=== PATIENT | female | born 1995 | race Caucasian/White ===

== ENCOUNTER 2018-02-24 20:40 | Emergency (ER) | payer SELFPAY | END 2018-02-24 21:10 | disposition home or self-care (01) | LOC: NAV ERS 20:40 | DX: K60.2 Anal fissure, unspecified (principal); F31.9 Bipolar disorder, unspecified | CPT/HCPCS: 99283 ==

== ENCOUNTER 2018-03-16 20:29 | Emergency (ER) | payer SELFPAY | END 2018-03-16 21:00 | disposition home or self-care (01) | LOC: NAV ERS 20:29 | DX: L25.9 Unspecified contact dermatitis, unspecified cause (principal); F31.9 Bipolar disorder, unspecified | CPT/HCPCS: 99282 ==

== ENCOUNTER 2018-03-24 02:06 | Emergency (ER) | payer SELFPAY ==
[2018-03-24] MEDS ORDERED: Ketorolac Tromethamine 30 MG/ML VIAL ONE (02:31)
== END 2018-03-24 03:00 | disposition home or self-care (01) ==
LOC: NAV ERS 02:06
DX: J20.9 Acute bronchitis, unspecified (principal); R10.9 Unspecified abdominal pain; M54.9 Dorsalgia, unspecified; F31.9 Bipolar disorder, unspecified; Z79.899 Other long term (current) drug therapy
CPT/HCPCS: 96372; J1885

== ENCOUNTER 2018-04-05 14:24 | Emergency (ER) | payer SELFPAY ==
[2018-04-05] MEDS ORDERED: Promethazine HCl 25 MG/ML VIAL ONE (15:14)
== END 2018-04-05 15:53 | disposition home or self-care (01) ==
LOC: NAV ERS 14:24
DX: K52.9 Noninfective gastroenteritis and colitis, unspecified (principal); I10 Essential (primary) hypertension; F31.9 Bipolar disorder, unspecified; F17.220 Nicotine dependence, chewing tobacco, uncomplicated
CPT/HCPCS: 96372; J2550

== ENCOUNTER 2018-04-12 15:46 | Emergency (ER) | payer SELFPAY ==
[2018-04-12] MEDS ORDERED: Ketorolac Tromethamine 30 MG/ML VIAL ONE (16:50)
[2018-04-12] MEDS ORDERED: Ondansetron ODT 4 MG TAB ONE (16:50)
[2018-04-12 16:53] LABS: Bilirubin Negative (Negative); Blood, Urine Small (Negative); Clarity Clear (Clear); Glucose, Urine (Dipstick) Negative (Negative); Leukocyte Trace (Negative); Nitrite Negative (Negative); Protein, Urine (Dipstick) Negative (Neg-Trace); Specific Gravity, Urine 1.015 (1.005-1.030); Urobilinogen 0.2 mg/dL (0.2-1.0)
[2018-04-12 17:05] LABS: Pregnancy Test - Urine (BHCG) Negative (Negative); Pregu Control Background? CLEAR/WHITE (CLR/WHITE); Pregu Control Bar Appear? YES (CONTROL BAR); Specific Gravity 1.015 (1.002-1.036)
[2018-04-12 17:05] LABS: Bacteria/HPF Rare-Few HPF (None Seen); RBC/HPF 0-3 HPF (0-3); Squamous Epithelial 0-3 HPF (0-3)
== END 2018-04-12 17:29 | disposition home or self-care (01) ==
LOC: NAV ERS 15:46
DX: R11.2 Nausea with vomiting, unspecified (principal); R10.9 Unspecified abdominal pain; I10 Essential (primary) hypertension; F31.9 Bipolar disorder, unspecified; F17.220 Nicotine dependence, chewing tobacco, uncomplicated
CPT/HCPCS: 81003; 81015; 81025; 87086; 96372; J1885; Q0162

== ENCOUNTER 2018-04-27 19:05 | Emergency (ER) | payer SELFPAY ==
[2018-04-27 19:28] LABS: Bilirubin Negative (Negative); Blood, Urine Small (Negative); Clarity Clear (Clear); Glucose, Urine (Dipstick) Negative (Negative); Leukocyte Moderate (Negative); Nitrite Negative (Negative); Protein, Urine (Dipstick) 30 mg/dL (Neg-Trace)
[2018-04-27 19:42] LABS: Bacteria/HPF 2+ HPF (None Seen); RBC/HPF 0-3 HPF (0-3)
[2018-04-27 19:43] LABS: Pregnancy Test - Urine (BHCG) Negative (Negative); Pregu Control Background? CLEAR/WHITE (CLR/WHITE); Pregu Control Bar Appear? YES (CONTROL BAR)
== END 2018-04-27 20:35 | disposition home or self-care (01) ==
LOC: NAV ERS 19:05
DX: N10 Acute pyelonephritis (principal); I10 Essential (primary) hypertension; F31.9 Bipolar disorder, unspecified; F17.220 Nicotine dependence, chewing tobacco, uncomplicated; N83.201 Unspecified ovarian cyst, right side
CPT/HCPCS: 81003; 81015; 81025; 87077; 87086; 87186; 99283

== ENCOUNTER 2018-05-01 02:19 | Inpatient (IN) | payer SELFPAY ==
[2018-05-01 02:57] LABS: Bilirubin Negative (Negative); Blood, Urine Trace (Negative); Clarity Clear (Clear); Glucose, Urine (Dipstick) 100 mg/dL (Negative); Leukocyte Trace (Negative); Nitrite Positive (Negative); Protein, Urine (Dipstick) Trace mg/dL (Neg-Trace)
[2018-05-01 03:01] LABS: Bacteria/HPF 2+ HPF (None Seen); Squamous Epithelial 0-3 HPF (0-3)
[2018-05-01] MEDS ORDERED: Sodium Chloride 0.9% 1,000 ML ONE (03:39)
[2018-05-01] MEDS ORDERED: Piperacillin/Tazobactam 3.375 GM VIAL ONE (03:40)
[2018-05-01] MEDS ORDERED: Azithromycin 200 MG/5 ML Oral Suspension ONE (03:40)
[2018-05-01] MEDS ORDERED: Sodium Chloride 0.9% 100 ML ONE (03:42)
[2018-05-01 03:54] LABS: #Basophils 0.2 thou/uL (0.0-0.2); #Eosinphils 0.1 thou/uL (0.0-0.7); #Lymphocytes 5.1 thou/uL (1.20-3.40); #Monocytes 0.9 thou/uL (0.11-0.59); #Neutrophils 5.8 thou/uL (1.40-6.50); %Basophils 1.5 % (0.0-1.0); %Eosinophils 1.2 % (0.0-10.0); %Lymphocytes 42.3 % (21.0-51.0); %Monocytes 7.6 % (0.0-10.0); %Neutrophils 47.5 % (42.0-75.0); Hemoglobin 14.4 g/dL (12.0-16.0); Mean Corpuscular Hemoglobin 27.7 pg (27.0-31.0); Mean Corpuscular Volume 86.6 fL (78.0-98.0); Mean Platelet Volume 14.9 fL (7.4-10.4); PLT Morphology Comment Appears Adequate; Platelet Count 205 thou/uL (130-400); RBC Morphology Normal; White Blood Cell (WBC) Count 12.1 thou/uL (4.8-10.8)
[2018-05-01 03:55] LABS: MDiff Complete? YES; Manual Diff?? NO
[2018-05-01 03:57] LABS: ALT (SGPT) 31 U/L (8-55); AST (SGOT) 24 U/L (5-34); Albumin 4.5 g/dL (3.5-5.0); Alkaline Phosphatase 107 U/L (40-150); Anion Gap 15 mmol/L (10-20); BUN (Urea Nitrogen) 11 mg/dL (7.0-18.7); Bilirubin, Total 0.9 mg/dL (0.2-1.2); Calc. Creatinine Clearance 0 mL/min (70-130); Calcium 9.7 mg/dL (7.8-10.44); Carbon Dioxide 25 mmol/L (22-29); Chloride 103 mmol/L (98-107); Estimated GFR-MDRD Greater than 90; Globulin 3.2 g/dL (2.4-3.5); Glucose 97 mg/dL (70-105); Potassium 3.3 mmol/L (3.5-5.1); Protein, Total 7.7 g/dL (6.0-8.3); Sodium 140 mmol/L (136-145)
[2018-05-01] MEDS ORDERED: Ondansetron ODT 4 MG TAB SL PRN (04:50)
[2018-05-01] MEDS ORDERED: Acetaminophen 325 MG TAB PO PRN (04:50)
[2018-05-01] MEDS ORDERED: Ondansetron HCl/PF 4 MG/2 ML Vial IVP PRN (04:50)
[2018-05-01 04:57] VITALS: BMI 46.7
[2018-05-01] MEDS ORDERED: Piperacillin/Tazobactam 3.375 GM in Sodium Chloride 0.9% 100 ML IVPB SCH (10:00)
[2018-05-01] MEDS: Piperacillin/Tazobactam 3.375 GM in Sodium Chloride 0.9% 100 ML IVPB SCH ×3 (10:55→21:21)
[2018-05-01] MEDS ORDERED: Phenazopyridine HCl 97.5 MG TABLET PO PRN (16:51)
[2018-05-01] MEDS ORDERED: Ondansetron ODT 4 MG TAB PO PRN (16:52)
[2018-05-01] MEDS ORDERED: Milk Of Magnesia 30 ML UDCUP PO PRN (16:52)
[2018-05-01] MEDS ORDERED: Loperamide HCl 2 MG CAP PO PRN (16:52)
[2018-05-01] MEDS: Acetaminophen 325 MG TAB PO PRN (17:05)
--- NOTE | 2018-05-01 21:26 | HP ---
DATE OF ADMISSION: 05/01/2018 HISTORY OF PRESENT ILLNESS: Ms. Coombs is a very pleasant 22-year-old white female that initially w as seen back in 04/27/2018 in the emergency room here. At that time, she had a urinary tract infecti on and was placed on Bactrim and Pyridium. The patient's pain seemed to go away, but she started hav ing some fever, dysuria, and frequency. She returned to the emergency room again early this morning where she was seen by the ER physician. At this time she had fever and chills and she complains up t o a fever of 103. White count was 12,000 and she had some left CVA tenderness. ER physician felt th at she had pyelonephritis and he looked up her cultures. She was reportedly resistant to all oral me ds, so he started her on Zosyn 3.75 q.6 hours. He also did blood cultures and repeat urine cultures. The patient was admitted to acute care or critical care for IV antibiotics. PAST MEDICAL HISTORY: Positive for hypertension, gallstones, right ovarian cyst x2 and a fused kidne y on the left. PAST SURGICAL HISTORY: Positive for tonsillectomy, bilateral wisdom teeth removed, prior , prior and control implant. SOCIAL HISTORY: Reveals patient dips, but does not smoke. She consumes alcohol rarely, maybe once e very couple of months. 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 She states her appetite is still good. She does feel somewhat tired and she has had fever and chills, but no night sweats. She does complain of some CVA tenderness. She denies any hearing problems or vision problems. She denies an y cough, cold, congestion or shortness of breath. She denies chest pain, dyspnea on exertion, edema, claudication, or palpitations. She denies nausea, vomiting, indigestion, diarrhea or constipation. Denies bloody stools, black tarry stools. Denies polydipsia, polyuria and polyphagia. She does com plain of pain mainly in her left CVA area. Denies any seizures, numbness, weakness or fainting. The patient denies anxiety, depression or stress. She does have some stress at work. PHYSICAL EXAMINATION: VITAL SIGNS: Reveal pulse is 69-72, respirations 16-20, O2 sat 97% on room air, T-max is 98.6 and bl ood pressure is 106/56. GENERAL: This is a well-developed, well-nourished, obese white female in no apparent distress at thi s time. HEENT: Reveals normocephalic and nontraumatic cranium. Pupils are equally round and reactive. Nose and throat are clear. The patient is dipping at this time. NECK: Supple, without masses, nodes or bruits. CHEST: Clear to auscultation. No rales, no rhonchi, no wheezes are heard. HEART: Reveals a regular rate and rhythm without murmurs, gallops or rubs. ABDOMEN: Morbidly obese, soft and nontender with some suprapubic fullness. The patient does have le ft-sided CVA tenderness and a little bit of right-sided CVA tenderness. GENITOURINARY: Exams deferred. No Hoffman catheter is in. EXTREMITIES: Reveal no clubbing, cyanosis or edema. NEUROLOGIC: The patient is oriented to person, place and time. Has no focal deficits. ASSESSMENT: 1. Pyelonephritis. 2. History of hypertension, controlled with diet and exercise. 3. History of gallstones in the past. 4. 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 5. Generalized weakness. 6. Pain management.
[2018-05-02] MEDS: Piperacillin/Tazobactam 3.375 GM in Sodium Chloride 0.9% 100 ML IVPB SCH ×4 (03:49→21:48)
[2018-05-02 05:39] LABS: #Basophils 0.2 thou/uL (0.0-0.2); #Eosinphils 0.2 thou/uL (0.0-0.7); #Lymphocytes 3.9 thou/uL (1.20-3.40); #Monocytes 0.6 thou/uL (0.11-0.59); #Neutrophils 3.5 thou/uL (1.40-6.50); %Basophils 1.9 % (0.0-1.0); %Eosinophils 1.9 % (0.0-10.0); %Lymphocytes 46.8 % (21.0-51.0); %Neutrophils 42.4 % (42.0-75.0); Hemoglobin 13.6 g/dL (12.0-16.0); Mean Corpuscular Hemoglobin 28.3 pg (27.0-31.0); Mean Corpuscular Volume 88.4 fL (78.0-98.0); Mean Platelet Volume 13.2 fL (7.4-10.4); Platelet Count 167 thou/uL (130-400); RBC Distribution Width 12.2 % (11.5-14.5); Red Blood Cell (RBC) Count 4.82 mill/uL (4.20-5.40); White Blood Cell (WBC) Count 8.3 thou/uL (4.8-10.8)
[2018-05-02 05:53] LABS: ALT (SGPT) 27 U/L (8-55); AST (SGOT) 23 U/L (5-34); Albumin 3.8 g/dL (3.5-5.0); Alkaline Phosphatase 85 U/L (40-150); Anion Gap 14 mmol/L (10-20); BUN (Urea Nitrogen) 9 mg/dL (7.0-18.7); Calc. Creatinine Clearance 235 mL/min (70-130); Calcium 8.9 mg/dL (7.8-10.44); Carbon Dioxide 24 mmol/L (22-29); Chloride 108 mmol/L (98-107); Estimated GFR-MDRD Greater than 90; Globulin 2.9 g/dL (2.4-3.5); Glucose 98 mg/dL (70-105); Potassium 4.5 mmol/L (3.5-5.1); Protein, Total 6.7 g/dL (6.0-8.3); Sodium 141 mmol/L (136-145)
--- NOTE | 2018-05-02 08:31 | PRG ---
DATE OF SERVICE: 05/02/2018 DATE OF ADMISSION: 05/01/2018 HISTORY OF PRESENT ILLNESS: This is a 22-year-old, very pleasant white female with pyelonephritis wi th left and right-sided CVA tenderness. She was admitted and started on Zosyn since she was resistan t to all oral antibiotics. Her white count yesterday was 12,100 and it was gone down to 8,300. She states she still has CVA tenderness, but it seems to be somewhat better. She has no complaints today . PHYSICAL EXAMINATION: VITAL SIGNS: Reveal blood pressure this morning 107/61, pulse 56-83 respirations 16-18, O2 sat 99% o n room air, T-max 98.4. GENERAL: This is a well-developed, well-nourished, slightly obese white female in no apparent distre ss at this time. HEENT: Reveals normocephalic, nontraumatic cranium. Pupils are equal, round, and reactive. Extraoc ular movements are intact. Nose and throat are slightly dry. NECK: Supple, without mass, nodes, bruits. CHEST: Clear to auscultation. No rales, rhonchi, wheezes or cough is heard. HEART: Reveals a regular rate and rhythm. ABDOMEN: Morbidly obese, soft, nontender. The patient has decreased left-sided costovertebral angle tenderness bilaterally, but it is still present. : Deferred. EXTREMITIES: Reveal no clubbing, cyanosis or edema. NEUROLOGIC: The patient is oriented to person, place, and time. ASSESSMENT: 1. Pyelonephritis. 2. History of hypertension, controlled with diet and exercise. 3. History of gallstones in the past. 4. History of diffuse kidney on the left. No acute on the right, more like a horseshoe kidney. 5. Generalized weakness. 6. Pain management. PLAN: 1. Continue present antibiotics, Zosyn 3.375 q.6 hours for full 7 days. 2. Continue to follow the patient's blood pressure closely. 3. Follow the patient's labs again on Friday. 4. Encourage the patient to get out of bed and sit in a regular chair. 5. Pain management is doing well.
[2018-05-02] MEDS: Acetaminophen 325 MG TAB PO PRN ×2 (13:59→20:51)
[2018-05-03] MEDS: Piperacillin/Tazobactam 3.375 GM in Sodium Chloride 0.9% 100 ML IVPB SCH ×4 (04:01→22:13)
--- NOTE | 2018-05-03 08:47 | PRG ---
DATE OF SERVICE: 05/03/2018 DATE OF ADMISSION: 05/01/2018 Ms. Coombs is a very pleasant 22-year-old white female who came to the emergency room with right-angelica ed CVA and found to have a pyelonephritis. She had previously been seen in the emergency room and wa s given Bactrim. Her cultures returned resistant to all oral antibiotics. She was admitted to the [facility] and started on Zosyn 3.375 q.6 hours. SUBJECTIVE: The patient states she still continues to have some back CVA tenderness. She has no com plaints of fever, chills, or night sweats anymore. PHYSICAL EXAMINATION: VITAL SIGNS: Reveal blood pressure this morning 113/56, pulse 60-80, respirations 18-20, O2 sat 96-9 8%, T-max 98.5. GENERAL: This is a well-developed, well-nourished, white female in no apparent distress at this time . HEENT: Reveals normocephalic, nontraumatic cranium. Pupils equal, round, and reactive. Extraocular movements intact. Nose and throat are clear, but dry. NECK: Supple, without mass, nodes or bruits. CHEST: Clear to auscultation. No rales, rhonchi, wheezes or cough is heard. HEART: Reveals a regular rate and rhythm. ABDOMEN: Morbidly obese, soft, nontender, without organomegaly. Normal bowel sounds are noted. The patient continues to have CVA tenderness. : Deferred. EXTREMITIES: Reveal no clubbing, cyanosis or edema. NEUROLOGIC: The patient is oriented to person, place, time, and situation. IMPRESSION: 1. Pyelonephritis, presently on Zosyn. 2. History of hypertension. The patient states it is controlled with diet and exercise. 3. History of gallstones. 4. History of a fused kidney on the left and no kidney on the right is noted. Most likely this is a horseshoe kidney. 5. Generalized weakness. 6. Pain management. PLAN: 1. Continue Zosyn 3.375 q.6 hours for a full 7 days. 2. Continue to follow the patient's blood pressure closely. 3. Follow the patient's labs on Friday. 4. Encourage the patient to get out of bed and sit in a chair and walk around.
[2018-05-03] MEDS: Acetaminophen 325 MG TAB PO PRN ×2 (16:48→22:53)
[2018-05-04] MEDS: Piperacillin/Tazobactam 3.375 GM in Sodium Chloride 0.9% 100 ML IVPB SCH ×4 (04:01→21:34)
--- NOTE | 2018-05-04 13:25 | PRG ---
DATE OF SERVICE: 05/04/2018 DATE OF ADMISSION: 05/01/2018 HISTORY OF PRESENT ILLNESS: Ms. Coombs is a very pleasant 22-year-old white female that was seen in the emergency room about 3 weeks back. She had a urinary tract infection and was put on oral antibi otics, but that did not resolve. She returned to the emergency room and was found to have resistance to all antibiotics. She had a pyelonephritis at this time. She was admitted to the hospital and [facility] on Zosyn 3.375 q.6 hours. SUBJECTIVE: The patient states she is beginning to have less back pain and less CVA tenderness. She has no fever, no chills, and no night sweats anymore. She states she is beginning to feel a bit bet ter. PHYSICAL EXAMINATION: VITAL SIGNS: Today, reveal blood pressure this morning 98/69, pulse 64-76, respirations 18, O2 sat 9 6%-98% on room air, T-max 98.4. GENERAL: This is a well-developed, well-nourished, slightly obese white female, in no apparent distr ess at this time. HEENT: Reveals normocephalic, nontraumatic cranium. Pupils equally round and reactive. Extraocular movements intact. Nose and throat are slightly dry, but clear. NECK: Supple, without masses, nodes, bruits. CHEST: Clear to auscultation. No rales, rhonchi, or wheezes are heard. No cough is noted. HEART: Reveals a regular rate and rhythm without murmurs, gallops, or rubs. ABDOMEN: Morbidly obese, soft, nontender, without organomegaly, normal bowel sounds are noted. No r ebound or guarding is noted. The patient's CVA tenderness is decreasing. EXAM: Deferred. EXTREMITIES: Reveal no clubbing, cyanosis, or edema. NEUROLOGIC: The patient is oriented to person, place, time, and situation. IMPRESSION: 1. Pyelonephritis, presently on Zosyn. 2. History of hypertension that the patient states is controlled with diet and exercise. 3. 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 No kidney on the right. 4. History of gallstones. 5. Generalized weakness. 6. Pain management. PLAN: 1. Continue Zosyn 3.375 q.6 hours for full 7 days, which will be on Friday or Friday. 2. Continue to follow the patient's blood pressure closely. 3. Follow the patient's labs tomorrow morning. 4. Patient is to get out of bed and walk around quite a bit.
[2018-05-04] MEDS: Acetaminophen 325 MG TAB PO PRN (21:09)
[2018-05-05] MEDS: Piperacillin/Tazobactam 3.375 GM in Sodium Chloride 0.9% 100 ML IVPB SCH ×4 (04:31→21:27)
[2018-05-05 05:16] LABS: #Basophils 0.2 thou/uL (0.0-0.2); #Eosinphils 0.2 thou/uL (0.0-0.7); #Lymphocytes 4.2 thou/uL (1.20-3.40); #Monocytes 0.8 thou/uL (0.11-0.59); #Neutrophils 5.5 thou/uL (1.40-6.50); %Basophils 1.7 % (0.0-1.0); %Eosinophils 2.1 % (0.0-10.0); %Monocytes 7.6 % (0.0-10.0); %Neutrophils 50.6 % (42.0-75.0); Hemoglobin 14.6 g/dL (12.0-16.0); Mean Corpuscular HGB CONC 32.8 g/dL (32.0-36.0); Mean Corpuscular Hemoglobin 28.4 pg (27.0-31.0); Mean Corpuscular Volume 86.5 fL (78.0-98.0); Mean Platelet Volume 14.5 fL (7.4-10.4); Platelet Count 150 thou/uL (130-400); RBC Distribution Width 12.2 % (11.5-14.5); Red Blood Cell (RBC) Count 5.14 mill/uL (4.20-5.40); White Blood Cell (WBC) Count 10.9 thou/uL (4.8-10.8)
[2018-05-05 05:34] LABS: ALT (SGPT) 26 U/L (8-55); AST (SGOT) 18 U/L (5-34); Albumin 3.8 g/dL (3.5-5.0); Alkaline Phosphatase 85 U/L (40-150); Anion Gap 14 mmol/L (10-20); BUN (Urea Nitrogen) 12 mg/dL (7.0-18.7); Bilirubin, Total 0.8 mg/dL (0.2-1.2); Calc. Creatinine Clearance 282 mL/min (70-130); Calcium 9.2 mg/dL (7.8-10.44); Carbon Dioxide 24 mmol/L (22-29); Chloride 105 mmol/L (98-107); Estimated GFR-MDRD Greater than 90; Globulin 2.8 g/dL (2.4-3.5); Glucose 108 mg/dL (70-105); Potassium 3.8 mmol/L (3.5-5.1); Protein, Total 6.6 g/dL (6.0-8.3); Sodium 139 mmol/L (136-145)
--- NOTE | 2018-05-05 21:40 | PRG ---
DATE OF SERVICE: 05/05/2018 DATE OF ADMISSION: 05/01/2018 HISTORY OF PRESENT ILLNESS: Ms. Coombs is a very pleasant 22-year-old white female seen in the [facility] room about 3 weeks back. She had a urinary tract infection, put on oral antibiotics that did n ot resolve. She returned to the emergency room and was found to have a resistant urinary tract infec tion to all oral antibiotics. She was found to have pyelonephritis and was admitted to the hospital and started on Zosyn 3.375 mg q.6 hours. The patient states she feels much better today and her back pain began to resolve a little bit. She states she has no fever, no chills, no night sweats anymore. She states she is feeling better. OBJECTIVE: VITAL SIGNS: Today reveal blood pressure 101/56, pulse 68-77, respirations 16-18, O2 sat 95%-97% on room air. T-max is 98.8. GENERAL: This is a well-developed, well-nourished, obese white female in no apparent distress at thi s time. HEENT: Reveals normocephalic, nontraumatic cranium. Pupils are equal, round, reactive. Extraocular movements intact. Nose and throat are slightly dry. NECK: Supple, without mass, nodes, bruits. LUNGS: Chest is clear to auscultation. No rales, rhonchi or wheezes are heard. HEART: Reveals a regular rate and rhythm without murmurs, gallops or rubs. ABDOMEN: Morbidly obese, soft, nontender. Normal bowel sounds are noted in all 4 quadrants. No devin ound or guarding is noted. The patient does have significant decrease in CVA tenderness. : Deferred. EXTREMITIES: Reveal no clubbing, cyanosis or edema. NEUROLOGIC: The patient is oriented to person, place, and time. IMPRESSION: 1. Pyelonephritis, presently on Zosyn. 2. Hypertension. The patient states she controls with diet and exercise. 3. Horseshoe kidney on left, no kidney on right. 4. History of gallstones. 5. Generalized weakness. 6. Pain management. PLAN: 1. Continue Zosyn 3.375 q.6 hours for a full 7 days, which will be on Friday or Friday. 2. Continue to follow the patient's blood pressure closely. 3. The patient is to be out of bed as much as possible.
[2018-05-06] MEDS: Piperacillin/Tazobactam 3.375 GM in Sodium Chloride 0.9% 100 ML IVPB SCH ×4 (03:54→21:50)
--- NOTE | 2018-05-06 19:04 | PRG ---
DATE OF SERVICE: 05/06/2018 DATE OF ADMISSION: 05/01/2018 HISTORY OF PRESENT ILLNESS: Ms. Coombs is a very pleasant 22-year-old white female that unfortunate ly has a resistant urinary tract infection. She returned to the ER when her UTI symptoms did not go away. She had fever and chills, night sweats. At that time they realized that she was resistant, an d Bactrim was not working. She was admitted to the hospital and placed on Zosyn. When I walked in today, the patient states she feels so much better today that her back does not hurt . She has not had any more fever or chills and she feels much better. OBJECTIVE: VITAL SIGNS: Today reveal blood pressure is 108/59, pulse 67-93, O2 sat 96% on room air, respiration s 18, T-max is 98.0. GENERAL: This is a well-developed, well-nourished, obese white female in no apparent distress at thi s time. HEENT: Reveals normocephalic, nontraumatic cranium. Pupils are equally round and reactive. Extraoc ular movements are intact. Nose and throat are slightly dry. NECK: Supple, without mass, nodes or bruits. CHEST: Clear to auscultation. No rales, rhonchi, wheezes or cough is heard. CARDIOVASCULAR: Reveals a regular rate and rhythm without murmurs, gallops or rubs. ABDOMEN: Soft, morbidly obese, nontender, without organomegaly, normal bowel sounds are noted. No r ebound or guarding is noted. : Deferred. EXTREMITIES: Reveal no clubbing, cyanosis or edema. NEUROLOGIC: The patient is oriented to person, place, and time. IMPRESSION: 1. Pyelonephritis much improved presently on Zosyn. 2. Patient according to pharmacy has had 17 dose. 3. Hypertension, stable. 4. Horseshoe kidney in left, no kidney on right. 5. History of gallstones. 6. Generalized weakness. 7. Pain management. PLAN: 1. Continue Zosyn for a full 28 doses. 2. Continue to follow the patient's blood pressure. 3. Continue to monitor the patient's labs.
[2018-05-07] MEDS: Piperacillin/Tazobactam 3.375 GM in Sodium Chloride 0.9% 100 ML IVPB SCH ×4 (04:31→21:56)
[2018-05-07 19:58] VITALS: TEMP 98.7
--- NOTE | 2018-05-07 20:13 | PRG ---
DATE OF SERVICE: 05/07/2018 DATE OF ADMISSION: 05/01/2018 HISTORY OF PRESENT ILLNESS: Ms. Coombs is a 22-year-old obese white female that came to the [facility] and had a urinary tract infection, placed on antibiotics. She returned because she was not getting better and noted to have a resistant urinary tract infection. She was placed in the hospital and pl aced on Zosyn. She had left flank pain and some right flank pain indicative of pyelonephritis. The patient has actually done very well and the dose took about 3 or 4 days for her pyelonephritis, b ack pain and CVA tenderness to go away, but now it is much better. She states she is walking and doi ng better. She has no complaints today. She should finish her antibiotics tomorrow evening. PHYSICAL EXAMINATION: VITAL SIGNS: Today reveal blood pressure 103/61, pulse 66-105, respirations 18, O2 sat 93% AND 98% o n room air, T-max 98.8. GENERAL: This is a well-developed, well-nourished, very pleasant white female in no apparent distres s. HEENT: Reveals normocephalic, nontraumatic cranium. Pupils are equally round and reactive. Extraoc ular movements intact. Nose and throat are slightly dry. NECK: Supple, without mass, nodes or bruits. CHEST: Clear to auscultation. No rales, rhonchi, wheezes or cough is heard. CARDIOVASCULAR: Reveals a regular rate and rhythm without murmurs, gallops or rubs. ABDOMEN: Soft, morbidly obese, nontender, without organomegaly, normal bowel sounds are noted. No r ebound or guarding is noted. : Deferred. EXTREMITIES: Reveal no clubbing, cyanosis or edema. NEUROLOGIC: The patient is oriented to person, place, and time. IMPRESSION: 1. Pyelonephritis, much improved on Zosyn. According to the pharmacy, the patient has 21 doses alre steph done: 2. Hypertension. 3. Horseshoe kidney on left. 3. History of gallstones. 4. Generalized weakness. 5. Pain management. PLAN: 1. Continue Zosyn for a full 28 doses. 2. Continue to follow the patient's blood pressure closely. 3. Monitor the patient's labs closely.
[2018-05-08] MEDS: Piperacillin/Tazobactam 3.375 GM in Sodium Chloride 0.9% 100 ML IVPB SCH ×3 (03:34→16:15)
[2018-05-08 11:54] VITALS: BP 118/66
--- NOTE | 2018-05-09 02:19 | DIS ---
DATE OF ADMISSION: 05/01/2018 DATE OF DISCHARGE: 05/08/2018 HISTORY: Ms. Coombs is a very pleasant 22-year-old somewhat obese white female that was seen in the emergency room at [facility] and had a urinary tract infection. She was treated wit h Bactrim, but returned several days later with fever and chills. It was found that she was resistan t to all oral antibiotics and the patient was placed on Zosyn. The patient has been on Zosyn 3.375 m g q.6. hours and her 28th dose finishes after 4 o'clock this afternoon. The patient will be then dis charged. She will be getting a full 7 days' worth of Zosyn. The patient is excited about going home and she states she feels much better. SUBJECTIVE: The patient denies any fever, chills, or malaise. She states that her CVA tenderness in her back is completely gone. She has no CVA tenderness even with deep palpation. She states she fe els much better and is ready to go home. PHYSICAL EXAMINATION: VITAL SIGNS: Blood pressure 122/64, pulse 98, respirations 18-20, O2 sat 98% on room air, T-max 98.7 . GENERAL: This is a well-developed, well-nourished, very pleasant white female in no apparent distres s at this time. HEENT: Normocephalic, nontraumatic cranium. Pupils equal, round, and reactive. Extraocular movemen ts intact. Nose and throat are clear. NECK: Supple without mass, nodes, or bruits. CHEST: Clear to auscultation. No rales, rhonchi, wheezes, or cough is heard. HEART: Regular rate and rhythm without murmurs, gallops, or rubs. ABDOMEN: Morbidly obese, soft, nontender. Normal bowel sounds noted in all 4 quadrants. No rebound or guarding is noted. GENITOURINARY: Deferred. EXTREMITIES: No clubbing, cyanosis, or edema. The patient is oriented to person, place, time, and s ituation. IMPRESSION: 1. Pyelonephritis, which is resolved. She gets her last dose at 4 o'clock today. 2. Hypertension. 3. Horseshoe kidney in left. 4. History of gallstones. 5. Generalized weakness. 6. Pain management. PLAN: 1. Finish the patient's 28th dose of Zosyn at 4 o'clock this evening. 2. The patient's blood pressure has been monitored and is stable. 3. The patient will be discharged after she finishes her dose of Zosyn. 4. The patient will have Macrobid 100 mg twice a day for 10 more days. The patient will be followed up by her primary care physician. If she has recurrence, she may need further evaluation for her ki dney stones, etc.
== END 2018-05-08 17:50 | disposition home or self-care (01) | DRG 690 ==
LOC: NAV ERS 02:19 → NAV ACUTE 04:09
PROVIDERS: ADMIT Family Medicine; ATTEND Family Medicine
DX: N12 Tubulo-interstitial nephritis, not specified as acute or chronic (principal); Z68.42 Body mass index [BMI] 45.0-49.9, adult; E66.01 Morbid (severe) obesity due to excess calories; I10 Essential (primary) hypertension; Q63.1 Lobulated, fused and horseshoe kidney; R53.1 Weakness; F17.290 Nicotine dependence, other tobacco product, uncomplicated; Z16.24 Resistance to multiple antibiotics; Z87.898 Personal history of other specified conditions
CPT/HCPCS: 36415; 80053; 81003; 81015; 83605; 85025; 87040; 96365; A4216; J2543; J7050

== ENCOUNTER 2018-07-23 14:46 | Emergency (ER) | payer SELFPAY ==
[2018-07-23 15:13] LABS: Bilirubin Negative (Negative); Blood, Urine Moderate (Negative); Clarity Clear (Clear); Glucose, Urine (Dipstick) Negative (Negative); Leukocyte Negative (Negative); Nitrite Negative (Negative); Protein, Urine (Dipstick) Negative (Neg-Trace); Specific Gravity, Urine 1.025 (1.005-1.030); Urobilinogen 0.2 mg/dL (0.2-1.0); pH, Urine 5.5 (5.0-9.0)
[2018-07-23 15:25] LABS: Bacteria/HPF 2+ HPF (None Seen); RBC/HPF 0-3 HPF (0-3); Squamous Epithelial 0-3 HPF (0-3); WBC/HPF 0-3 HPF (0-3)
[2018-07-23 15:26] LABS: Pregnancy Test - Urine (BHCG) Negative (Negative); Pregu Control Background? CLEAR/WHITE (CLR/WHITE); Pregu Control Bar Appear? YES (CONTROL BAR); Specific Gravity 1.025 (1.002-1.036)
[2018-07-23] MEDS ORDERED: Ondansetron ODT 4 MG TAB ONE (15:41)
[2018-07-23] MEDS ORDERED: Sodium Chloride 0.9% 1,000 ML ONE (16:43)
[2018-07-23] MEDS ORDERED: Promethazine HCl 25 MG/ML VIAL ONE (16:43)
[2018-07-23 17:10] LABS: #Basophils 0.2 thou/uL (0.0-0.2); #Eosinphils 0.2 thou/uL (0.0-0.7); #Lymphocytes 3.7 thou/uL (1.20-3.40); #Monocytes 0.5 thou/uL (0.11-0.59); #Neutrophils 3.9 thou/uL (1.40-6.50); %Basophils 2.6 % (0.0-1.0); %Eosinophils 2.8 % (0.0-10.0); %Lymphocytes 43.3 % (21.0-51.0); %Monocytes 5.7 % (0.0-10.0); %Neutrophils 45.7 % (42.0-75.0); Hemoglobin 15.6 g/dL (12.0-16.0); Mean Corpuscular HGB CONC 31.4 g/dL (32.0-36.0); Mean Platelet Volume 12.4 fL (7.4-10.4); Platelet Count 230 thou/uL (130-400); RBC Distribution Width 12.1 % (11.5-14.5); Red Blood Cell (RBC) Count 5.56 mill/uL (4.20-5.40); White Blood Cell (WBC) Count 8.5 thou/uL (4.8-10.8)
[2018-07-23 17:12] LABS: ALT (SGPT) 32 U/L (8-55); AST (SGOT) 23 U/L (5-34); Albumin 4.5 g/dL (3.5-5.0); Alkaline Phosphatase 119 U/L (40-150); Anion Gap 14 mmol/L (10-20); BUN (Urea Nitrogen) 9 mg/dL (7.0-18.7); Bilirubin, Total 1.6 mg/dL (0.2-1.2); Calc. Creatinine Clearance 0 mL/min (70-130); Calcium 9.7 mg/dL (7.8-10.44); Carbon Dioxide 26 mmol/L (22-29); Chloride 103 mmol/L (98-107); Estimated GFR-MDRD Greater than 90; Globulin 3.4 g/dL (2.4-3.5); Glucose 100 mg/dL (70-105); Lipase 33 U/L (8-78); Potassium 3.9 mmol/L (3.5-5.1); Protein, Total 7.9 g/dL (6.0-8.3); Sodium 139 mmol/L (136-145)
== END 2018-07-23 18:12 | disposition home or self-care (01) ==
LOC: NAV ERS 14:46
DX: R11.2 Nausea with vomiting, unspecified (principal); R10.31 Right lower quadrant pain; R10.32 Left lower quadrant pain; I10 Essential (primary) hypertension; F31.9 Bipolar disorder, unspecified; F17.220 Nicotine dependence, chewing tobacco, uncomplicated
CPT/HCPCS: 80053; 81003; 81015; 81025; 83690; 85025; 87086; 96365; J2550; J7050; Q0162

== ENCOUNTER 2018-12-21 12:38 | Emergency (ER) | payer SELFPAY | END 2018-12-21 13:51 | disposition home or self-care (01) | LOC: NAV ERS 12:38 | DX: L60.0 Ingrowing nail (principal); F31.9 Bipolar disorder, unspecified; I10 Essential (primary) hypertension; F17.220 Nicotine dependence, chewing tobacco, uncomplicated | CPT/HCPCS: 36416; 99283 ==

== ENCOUNTER 2019-08-04 17:50 | Emergency (ER) | payer SELFPAY ==
[2019-08-04] MEDS ORDERED: Cephalexin 250 MG CAP ONE (18:18)
--- NOTE | 2019-08-04 18:32 | RAD ---
Exam: XR Toe(s) Lt Min 2 View HISTORY: Infected left great toe. COMPARISON: None FINDINGS: There is lucency overlying the left great toe in the region of the expected location of the nailbed w hich may related to patient's known soft tissue wound and infection. Subcutaneous soft tissue swelling of the great toe is present. No obvious osseous obstruction is seen, and there is no fractur e or dislocation. No other osseous abnormality. IMPRESSION: 1. No acute osseous abnormality is identified. No definite osseous destruction is appreciated on this examination. 2. Lucency overlying the great toe with associated soft tissue swelling. Findings are likely related to the patient's history of infection involving the left great toe. If there is concern for osteomyelitis, MRI would be more sensitive study of choice for further evaluation.
== END 2019-08-04 18:51 | disposition home or self-care (01) ==
LOC: NAV ERS 17:50
DX: L60.0 Ingrowing nail (principal); L03.032 Cellulitis of left toe; I10 Essential (primary) hypertension; F31.9 Bipolar disorder, unspecified; F17.220 Nicotine dependence, chewing tobacco, uncomplicated

== ENCOUNTER 2020-03-21 16:48 | Emergency (ER) | payer SELFPAY | END 2020-03-21 18:18 | disposition home or self-care (01) | LOC: NAV ERS 16:48 | DX: I88.9 Nonspecific lymphadenitis, unspecified (principal); J02.9 Acute pharyngitis, unspecified; I10 Essential (primary) hypertension; F41.9 Anxiety disorder, unspecified; F17.220 Nicotine dependence, chewing tobacco, uncomplicated; F31.9 Bipolar disorder, unspecified | CPT/HCPCS: 87081; 87430; 99283 ==

== ENCOUNTER 2020-05-01 09:15 | Emergency (ER) | payer SELFPAY ==
[2020-05-01] MEDS ORDERED: Ketorolac Tromethamine 60 MG/2 ML VIAL ONE (10:24)
[2020-05-01] MEDS ORDERED: Cyclobenzaprine 10 MG TAB ONE (10:24)
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
== END 2020-05-01 10:45 | disposition home or self-care (01) ==
LOC: NAV ERS 09:15
DX: S39.012A Strain of muscle, fascia and tendon of lower back, initial encounter (principal); S13.9XXA Sprain of joints and ligaments of unspecified parts of neck, initial encounter; F41.9 Anxiety disorder, unspecified; F31.9 Bipolar disorder, unspecified; F17.220 Nicotine dependence, chewing tobacco, uncomplicated; V69.40XA Driver of heavy transport vehicle injured in collision with unspecified motor vehicles in traffic accident, initial encounter
CPT/HCPCS: 72125; 72131; 96372; J1885

== ENCOUNTER 2020-05-31 11:46 | Emergency (ER) | payer OTHER, SELFPAY ==
[2020-06-01 14:45] LABS: SARS-CoV-2 MS2 Positive; SARS-CoV-2 N Gene Negative; SARS-CoV-2 S Gene Negative; SARS-CoV-2 by NAA Not Detected (NotDetected); SARS-CoV-2 orf1ab Negative
== END 2020-05-31 12:25 | disposition home or self-care (01) ==
LOC: NAV ERS 11:46
DX: R50.9 Fever, unspecified (principal); R05 Cough; R11.0 Nausea; Z20.828 Contact with and (suspected) exposure to other viral communicable diseases; I10 Essential (primary) hypertension; F41.9 Anxiety disorder, unspecified; F31.9 Bipolar disorder, unspecified; F17.220 Nicotine dependence, chewing tobacco, uncomplicated
CPT/HCPCS: 87635; 99283; U0003

== ENCOUNTER 2020-12-29 07:47 | Emergency (ER) | payer OTHER, SELFPAY ==
[2020-12-29] MEDS ORDERED: Ondansetron ODT 4 MG TAB ONE (08:12)
[2020-12-29 08:45] LABS: Bilirubin Negative (Negative); Blood, Urine Small (Negative); Clarity Clear (Clear); Glucose, Urine (Dipstick) Negative (Negative); Ketone, Urine Negative (Negative); Leukocyte Negative (Negative); Nitrite Negative (Negative); Protein, Urine (Dipstick) Negative (Neg-Trace); Specific Gravity, Urine 1.025 (1.005-1.030); Urobilinogen 0.2 mg/dL (Less than 2); pH, Urine 5.5 (5.0-9.0)
[2020-12-29 08:51] LABS: #Basophils 0.1 thou/uL (0.0-0.2); #Eosinphils 0.1 thou/uL (0.0-0.7); #Lymphocytes 2.2 thou/uL (1.20-3.40); #Monocytes 0.7 thou/uL (0.11-0.59); #Neutrophils 6.5 thou/uL (1.40-6.50); %Basophils 1.3 % (0.0-1.0); %Eosinophils 0.8 % (0.0-10.0); %Lymphocytes 23.2 % (21.0-51.0); %Monocytes 7.5 % (0.0-10.0); %Neutrophils 67.2 % (42.0-75.0); Hemoglobin 16.6 g/dL (12.0-16.0); Mean Corpuscular HGB CONC 33.3 g/dL (32.0-36.0); Mean Corpuscular Hemoglobin 29.6 pg (27.0-31.0); Mean Corpuscular Volume 88.7 fL (78.0-98.0); Mean Platelet Volume 13.9 fL (7.4-10.4); Platelet Count 210 thou/uL (130-400); RBC Distribution Width 12.3 % (11.5-14.5); White Blood Cell (WBC) Count 9.7 thou/uL (4.8-10.8)
[2020-12-29 08:57] LABS: ALT (SGPT) 44 U/L (8-55); AST (SGOT) 27 U/L (5-34); Albumin 4.4 g/dL (3.5-5.0); Alkaline Phosphatase 132 U/L (40-110); Anion Gap 14 mmol/L (10-20); BUN (Urea Nitrogen) 9 mg/dL (7.0-18.7); Bilirubin, Total 1.9 mg/dL (0.2-1.2); Calc. Creatinine Clearance 0 mL/min (70-130); Calcium 9.1 mg/dL (7.8-10.44); Carbon Dioxide 26 mmol/L (22-29); Chloride 100 mmol/L (98-107); Globulin 3.5 g/dL (2.4-3.5); Glucose 108 mg/dL (70-105); Lipase 27 U/L (8-78); Potassium 3.6 mmol/L (3.5-5.1); Protein, Total 7.9 g/dL (6.0-8.3); Sodium 136 mmol/L (136-145)
[2020-12-29 09:02] LABS: Bacteria/HPF Rare-Few HPF (None Seen); RBC/HPF 0-3 HPF (0-3); Squamous Epithelial 0-3 HPF (0-3); WBC/HPF None Seen HPF (0-3)
[2020-12-29 09:03] LABS: Pregnancy Test - Urine (BHCG) Negative (Negative); Pregu Control Background? CLEAR/WHITE (CLR/WHITE); Pregu Control Bar Appear? YES (CONTROL BAR); Specific Gravity 1.025 (1.002-1.036)
== END 2020-12-29 10:35 | disposition home or self-care (01) ==
LOC: NAV ERS 07:47
DX: I12.9 Hypertensive chronic kidney disease with stage 1 through stage 4 chronic kidney disease, or unspecified chronic kidney disease (principal); N18.9 Chronic kidney disease, unspecified; K76.0 Fatty (change of) liver, not elsewhere classified; R19.7 Diarrhea, unspecified; R11.2 Nausea with vomiting, unspecified; F17.220 Nicotine dependence, chewing tobacco, uncomplicated
CPT/HCPCS: 74177; 80053; 81003; 81015; 81025; 83690; 85025; Q0162

== ENCOUNTER 2021-01-02 15:56 | Emergency (ER) | payer OTHER ==
[2021-01-02 16:25] LABS: Bilirubin Small (Negative); Blood, Urine Moderate (Negative); Clarity Clear (Clear); Glucose, Urine (Dipstick) Negative (Negative); Ketone, Urine Negative (Negative); Leukocyte Negative (Negative); Nitrite Negative (Negative); Protein, Urine (Dipstick) Trace mg/dL (Neg-Trace)
[2021-01-02 16:31] LABS: #Basophils 0.1 thou/uL (0.0-0.2); #Eosinphils 0.2 thou/uL (0.0-0.7); #Lymphocytes 3.5 thou/uL (1.20-3.40); #Neutrophils 5.9 thou/uL (1.40-6.50); %Basophils 0.9 % (0.0-1.0); %Eosinophils 1.9 % (0.0-10.0); %Monocytes 9.4 % (0.0-10.0); %Neutrophils 54.8 % (42.0-75.0); Hemoglobin 15.5 g/dL (12.0-16.0); Mean Corpuscular HGB CONC 32.4 g/dL (32.0-36.0); Mean Corpuscular Hemoglobin 28.7 pg (27.0-31.0); Mean Corpuscular Volume 88.6 fL (78.0-98.0); Platelet Count 222 thou/uL (130-400); RBC Distribution Width 12.5 % (11.5-14.5); Red Blood Cell (RBC) Count 5.41 mill/uL (4.20-5.40); White Blood Cell (WBC) Count 10.7 thou/uL (4.8-10.8)
[2021-01-02 16:39] LABS: Pregnancy Test - Urine (BHCG) Negative (Negative); Pregu Control Background? CLEAR/WHITE (CLR/WHITE); Pregu Control Bar Appear? YES (CONTROL BAR); Specific Gravity, Urine 1.025 (1.002-1.036)
[2021-01-02 16:44] LABS: Bacteria/HPF 1+ HPF (None Seen); RBC/HPF 0-3 HPF (0-3)
[2021-01-02 16:49] LABS: ALT (SGPT) 117 U/L (8-55); AST (SGOT) 52 U/L (5-34); Albumin 4.3 g/dL (3.5-5.0); Alkaline Phosphatase 112 U/L (40-110); Anion Gap 15 mmol/L (10-20); BUN (Urea Nitrogen) 5 mg/dL (7.0-18.7); Bilirubin, Total 1.8 mg/dL (0.2-1.2); Calc. Creatinine Clearance 0 mL/min (70-130); Calcium 9.1 mg/dL (7.8-10.44); Carbon Dioxide 26 mmol/L (22-29); Chloride 100 mmol/L (98-107); Globulin 3.4 g/dL (2.4-3.5); Glucose 89 mg/dL (70-105); Lipase 33 U/L (8-78); Potassium 3.4 mmol/L (3.5-5.1); Protein, Total 7.7 g/dL (6.0-8.3); Sodium 138 mmol/L (136-145)
== END 2021-01-02 18:22 | disposition home or self-care (01) ==
LOC: NAV ERS 15:56
DX: N39.0 Urinary tract infection, site not specified (principal); R19.7 Diarrhea, unspecified; I10 Essential (primary) hypertension; F17.220 Nicotine dependence, chewing tobacco, uncomplicated
CPT/HCPCS: 80053; 81003; 81015; 81025; 83690; 85025; 87086; 99284